=== PATIENT | female | born 1980 | race Two or more races ===

== ENCOUNTER 2017-04-10 12:28 | Inpatient (IN) | payer MEDICAID ==
[2017-04-10] MEDS ORDERED: AMPICILLIN 2 GM/NS (PMX) 100 ML (12:41)
[2017-04-10] MEDS: LACTATED RINGER'S 1,000 ML IV (12:50)
[2017-04-10] MEDS: AMPICILLIN 2 GM/NS (PMX) 100 ML IV (12:51)
[2017-04-10] MEDS ORDERED: CARBOPROST 250 MCG INJ IM (13:00)
[2017-04-10] MEDS ORDERED: OXYTOCIN 30 UNITS/LR 500 ML IV (13:00)
[2017-04-10] MEDS ORDERED: MISOPROSTOL 200 MCG TAB PR (13:00)
[2017-04-10] MEDS ORDERED: METHYLERGONOVINE 0.2 MG INJ IM (13:00)
[2017-04-10] MEDS ORDERED: BUTORPHANOL 2 MG INJ IV (13:00)
[2017-04-10] MEDS ORDERED: IBUPROFEN 600 MG TAB PO (13:00)
[2017-04-10 13:02] LABS: ADD MAN DIFF? NO
[2017-04-10 13:07] LABS: WHITE BLOOD COUNT 9.1 10^3/ul (4.8-10.8)
[2017-04-10 13:07] LABS: BASOPHILS % 0.3 % (0.0-2.0); EOSINOPHILS % 0.2 % (0.0-7.0); HEMATOCRIT 41.9 % (37.0-47.0); LYMPHOCYTES # 1.5 10^3/ul (0.8-2.9); LYMPHOCYTES % 16.1 % (15.0-51.0); MEAN CORPUSCULAR HEMOGLOBIN 31.1 pg (29.0-33.0); MEAN CORPUSCULAR HGB CONC 33.4 g/dl (32.0-37.0); MEAN CORPUSCULAR VOLUME 93.1 fl (82.0-101.0); MEAN PLATELET VOLUME 10.1 fl (7.4-10.4); MONOCYTE # 0.5 10^3/ul (0.3-0.9); MONOCYTES % 5.4 % (0.0-11.0); NEUTROPHIL # 7.1 10^3/ul (1.6-7.5); NEUTROPHILS % 77.7 % (39.0-77.0); PLATELET COUNT 239 10^3/UL (140-415); RED CELL DISTRIBUTION WIDTH 13.7 % (11.5-14.5)
[2017-04-10 13:30] LABS: INR 0.86; PROTIME 11.8 Sec (11.9-14.9); PT RATIO 0.9
[2017-04-10 13:31] LABS: PARTIAL THROMBOPLASTIN TIME 25.3 Sec (25.0-35.0)
[2017-04-10] MEDS: BUTORPHANOL 2 MG INJ IV (13:57)
[2017-04-10 14:01] LABS: HEPATITIS B SURFACE ANTIGEN NEGATIVE (NEGATIVE)
[2017-04-10] MEDS: OXYTOCIN 30 UNITS/LR 500 ML IV ×3 (15:18→21:14)
[2017-04-10] MEDS: LIDOCAINE 1% (MPF) 30 ML INJ INJ (15:49)
[2017-04-10] MEDS ORDERED: ONDANSETRON 4 MG INJ IV (17:30)
[2017-04-10] MEDS ORDERED: HYDROCODONE/APAP (5/325) TAB PO ×2 (17:30)
[2017-04-10] MEDS ORDERED: OXYCODONE/ASPIRIN (4.88/325) TAB PO ×2 (17:30)
[2017-04-10] MEDS ORDERED: ACETAMINOPHEN 325 MG TAB PO (17:30)
[2017-04-10] MEDS ORDERED: DIBUCAINE 1% 30 GM OINT PR (17:30)
[2017-04-10] MEDS: IBUPROFEN 600 MG TAB PO ×2 (18:23→23:33)
[2017-04-10] MEDS: SENNA/DOCUSATE NA (8.6MG/50MG) TAB PO (21:15)
[2017-04-10] MEDS: WITCH HAZEL/GLYCERIN PAD PR (21:15)
[2017-04-10] MEDS: BENZOCAINE 20% 56 ML SPRAY TOP (21:15)
[2017-04-10 21:22] LABS: RAPID PLASMA REAGIN NONREACTIVE (NR)
[2017-04-11] MEDS: IBUPROFEN 600 MG TAB PO ×4 (05:18→23:46)
[2017-04-11 10:14] LABS: ADD MAN DIFF? NO
[2017-04-11] MEDS: SENNA/DOCUSATE NA (8.6MG/50MG) TAB PO ×2 (10:16→20:34)
[2017-04-11] MEDS: INFLUENZA VIRUS VACCINE 0.5 ML SYG IM* (10:17)
[2017-04-11 10:20] LABS: WHITE BLOOD COUNT 11.4 10^3/ul (4.8-10.8)
[2017-04-11 10:20] LABS: BASOPHILS % 0.3 % (0.0-2.0); EOSINOPHILS % 0.3 % (0.0-7.0); HEMATOCRIT 32.6 % (37.0-47.0); HEMOGLOBIN 10.9 g/dl (12.0-16.0); LYMPHOCYTES # 2.3 10^3/ul (0.8-2.9); LYMPHOCYTES % 19.9 % (15.0-51.0); MEAN CORPUSCULAR HEMOGLOBIN 31.4 pg (29.0-33.0); MEAN CORPUSCULAR HGB CONC 33.4 g/dl (32.0-37.0); MEAN CORPUSCULAR VOLUME 93.9 fl (82.0-101.0); MEAN PLATELET VOLUME 10.3 fl (7.4-10.4); MONOCYTE # 0.7 10^3/ul (0.3-0.9); MONOCYTES % 5.9 % (0.0-11.0); NEUTROPHIL # 8.4 10^3/ul (1.6-7.5); NEUTROPHILS % 73.2 % (39.0-77.0); PLATELET COUNT 201 10^3/UL (140-415); RED BLOOD COUNT 3.47 10^6/ul (4.20-5.40); RED CELL DISTRIBUTION WIDTH 13.7 % (11.5-14.5)
[2017-04-11] MEDS: LANOLIN 7 GM TUBE TOP (22:07)
[2017-04-12] MEDS: IBUPROFEN 600 MG TAB PO ×3 (05:37→17:19)
[2017-04-12] MEDS: MEASLES,MUMPS,RUBELLA VACCINE INJ SC* (09:00)
[2017-04-12] MEDS: SENNA/DOCUSATE NA (8.6MG/50MG) TAB PO (09:58)
[2017-04-12] MEDS: DIPHTH/TET/ACEL PERTUSS (ADULT) 0.5 ML VIAL IM* (10:09)
== END 2017-04-12 17:50 | disposition home or self-care (01) | DRG 775 ==
LOC: L-D 12:28 → PP1 17:25
PROVIDERS: Obstetrics & Gynecology
PROC: 10E0XZZ Delivery of Products of Conception, External Approach (ICD-10-PCS; principal; 2017-04-10)
PROC: 0HQ9XZZ Repair Perineum Skin, External Approach (ICD-10-PCS; 2017-04-10)
DX: O70.0 First degree perineal laceration during delivery (principal); Z37.0 Single live birth; Z3A.39 39 weeks gestation of pregnancy
CPT/HCPCS: 82962; 85025; 85610; 85730; 86592; 86900; 86901; 87340; 90686; 90715